=== PATIENT | male | born 1995 | race Caucasian/White ===

== ENCOUNTER → 2022-03-11 | Outpatient (CLI) | payer OTHER ==
--- NOTE | 2022-03-11 12:28 | XR ---
EXAMINATION TYPE: XR clavicle RT DATE OF EXAM: 03/11/2022 COMPARISON: NONE HISTORY: Pain TECHNIQUE: 2 views submitted FINDINGS: Osseous structures intact. AC joint maintained. Lung clear. IMPRESSION: No acute fracture.
--- NOTE | 2022-03-11 12:29 | XR ---
EXAMINATION TYPE: XR shoulder complete RT DATE OF EXAM: 03/11/2022 COMPARISON: NONE HISTORY: Pain TECHNIQUE: Three views are submitted. FINDINGS: The osseous structures are intact. There is no acute fracture or dislocation. The AC joint is maint ained. IMPRESSION: 1. No acute process.
--- NOTE | 2022-03-11 12:30 | XR ---
EXAMINATION TYPE: XR scapula RT DATE OF EXAM: 03/11/2022 COMPARISON: NONE HISTORY: Pain TECHNIQUE: 2 views submitted FINDINGS: Osseous structures intact. Joint space is preserved. Visualized portion of lung lepe guillermo jhaveri IMPRESSION: No acute fracture.
== END | disposition home or self-care (01) ==
LOC: RADXRMAIN 11:51
PROVIDERS: ATTEND Emergency Medicine
DX: S40.011A Contusion of right shoulder, initial encounter (principal)